=== PATIENT | male | born 1975 ===

== ENCOUNTER 2019-02-03 15:32 | Emergency (ER) | payer SELFPAY ==
[2019-02-03] MEDS ORDERED: Aspirin 81 MG Tab.Chew PO ONE (15:38)
[2019-02-03] MEDS ORDERED: Sodium Chloride 0.9% 1,000 ML IV ONE (15:38)
[2019-02-03] MEDS ORDERED: Aspirin 81 MG Tab.Chew ONE (15:46)
[2019-02-03] MEDS ORDERED: Nitroglycerin 0.4 MG Tab.SL SL ONE (15:47)
[2019-02-03] MEDS: Nitroglycerin 0.4 MG Tab.SL SL PRN ×3 (15:53→16:03)
--- NOTE | 2019-02-03 16:15 | CR ---
INDICATION: chest pain TECHNIQUE: Chest 1 view. COMPARISON: None. FINDINGS: Cardiovascular and mediastinum: Heart size and vasculature are normal in caliber and appearance. Mediastinum is within normal limits. Lungs and pleural space: Lungs are clear. No sign of infiltrate or mass. No sign of pleural effusion. No pneumothorax. Bones and soft tissues: No significant findings. IMPRESSION: Unremarkable chest. Dictated by: Abhishek Ovalles MD @ 02/03/2019 16:14:17 (Electronically Signed)
[2019-02-03 16:20] LABS: CHLORIDE,CL 103 mmol/L (98-107); SODIUM,NA 138 mmol/L (136-148)
--- NOTE | 2019-02-03 16:28 | EDM.PDOC ---
ED HPI GENERAL MEDICAL PROBLEM - General Chief Complaint: Chest Pain Stated Complaint: CHEST PAINS Time Seen by Provider: 02/03/19 15:40 Source of Information: Reports: Patient History Limitations: Reports: No Limitations - History of Present Illness INITIAL COMMENTS - FREE TEXT/NARRATIVE: HISTORY AND PHYSICAL: History of present illness: Patient is a 43-year-old male presents to the ED today with concern of chest pain since he woke up this morning about 9 AM. Patient states he's been having chest pain off and on over the past several weeks but today has been ongoing since 9 AM. Patient states he had a physical scheduled with the clinic this morning who sent him to the ER due to his chest pain and high blood pressure. Patient states he does not normally have high blood pressure and does not have any health history of anything. Patient rates his discomfort a 6 out of 10 and describes it in the mid to the right lower sternum. Patient states the pain is worse with activity and he become short of breath with activity and better with rest. Patient states he has not taken anything today for her symptoms. Patient states he also feels a little bit sweaty but denies any other symptoms at this time. Patient denies fever, chills, or cough. Denies headache, neck stiff ness, change in vision, syncope, or near syncope. Denies nausea, vomiting, abdominal pain, diarrhea, constipation, or dysuria. Has not noted any blood in urine or stool. Patient has been eating and drinking appropriately. Review of systems: As per history of present illness and below otherwise all systems reviewed and negative. Past medical history: As per history of present illness and as reviewed below otherwise noncontributory. Surgical history: As per history of present illness and as reviewed below otherwise noncontributory. Social history: See social history for further information Family history: As per history of present illness and as reviewed below otherwise noncontributory. Physical exam: General: Patient is alert, oriented, and in no acute distress. Patient laying comfortably on exam table. Patient does appear covered in sweat. HEENT: Atraumatic, normocephalic, pupils equal and reactive bilaterally, negative for conjunctival pallor or scleral icterus, mucous membranes moist, TMs normal bilaterally, throat clear, neck supple, nontender, trachea midline. No drooling or trismus noted. No meningeal signs. No hot potato voice noted. Lungs: Clear to auscultation, breath sounds equal bilaterally, chest nontender. Heart: S1S2, regular rate and rhythm without overt murmur Abdomen: Soft, nondistended, nontender. Negative for masses or hepatosplenomegaly. Negative for costovertebral tenderness. Pelvis: Stable nontender. Genitourinary: Deferred. Rectal: Deferred. Skin: Intact, warm, dry. No lesions or rashes noted. Extremities: Atraumatic, negative for cords or calf pain. Neurovascular unremarkable. Neuro: Awake, alert, oriented. Cranial nerves II through XII unremarkable. Cerebellum unremarkable. Motor and sensory unremarkable throughout. Exam nonfocal. Notes: Patient does express complete resolution of chest pain with nitroglycerin given. Offered admission for observation, discussed the risks of not admitting, but patient adamantly declines stating he "has to work" and accepting of risk of not being admitted. Denies any further questions or concerns at this time. Diagnostics: EKG, CBC, CMP, UA, troponin, lipase, chest x-ray Therapeutics: ASA, saline, nitro x3 Prescription: none Impression: Chest pain, unspecified Plan: 1. You can alternate ibuprofen and Tylenol as directed for pain and discomfort. Follow up with her primary care provider as discussed. 2. Return to the ED as needed and as discussed. Definitive disposition and diagnosis as appropriate pending reevaluation and review of above. Chest Pain Score (Numeric/FACES): 1 - Related Data Allergies Allergy/AdvReac Type Severity Reaction Status Date / Time metronidazole [From Flagyl] Allergy Hives Verified 02/03/19 15:55 Home Meds: Home Meds . [No Known Home Meds] 02/03/19 [History] Past Medical History - Past Health History Medical/Surgical History: Denies Medical/Surgical History Social & Family History - Family History Family Medical History: Noncontributory - Tobacco Use Smoking Status *Q: Current Every Day Smoker Years of Tobacco use: 25 Packs/Tins Daily: 0.5 - Caffeine Use Caffeine Use: Reports: Coffee - Recreational Drug Use Recreational Drug Use: No ED ROS GENERAL - Review of Systems Review Of Systems: ROS reveals no pertinent complaints other than HPI. ED EXAM, GENERAL - Physical Exam Exam: See Below (See dictation) Course - Vital Signs Last Recorded V/S: Last Vital Signs Temp 36.4 C 02/03/19 15:36 Pulse 108 H 02/03/19 16:08 Resp 18 02/03/19 16:08 BP 144/99 H 02/03/19 16:08 Pulse Ox 95 02/03/19 16:08 - Orders/Labs/Meds Orders: Active Orders 24 hr Category Date Time Status EKG Documentation Completion [RC] STAT Care 02/03/19 15:38 Active UA RFX FABIANO AND CULT IF INDIC [URIN] Stat Lab 02/03/19 15:38 Ordered Labs: Laboratory Tests 02/03/19 02/03/19 Range/Units 15:42 15:42 WBC 8.86 (4.0-11.0) K/uL RBC 5.57 (4.50-5.90) M/uL Hgb 16.3 (13.0-17.0) g/dL Hct 47.0 (38.0-50.0) % MCV 84.4 (80.0-98.0) fL MCH 29.3 (27.0-32.0) pg MCHC 34.7 (31.0-37.0) g/dL RDW Std Deviation 44.3 (28.0-62.0) fl RDW Coeff of Jose 15 (11.0-15.0) % Plt Count 223 (150-400) K/uL MPV 9.30 (7.40-12.00) fL Neut % (Auto) 55.1 (48.0-80.0) % Lymph % (Auto) 34.1 (16.0-40.0) % [place] % (Auto) 9.3 (0.0-15.0) % Eos % (Auto) 1.2 (0.0-7.0) % Baso % (Auto) 0.3 (0.0-1.5) % Neut # (Auto) 4.9 (1.4-5.7) K/uL Lymph # (Auto) 3.0 H (0.6-2.4) K/uL [place] # (Auto) 0.8 (0.0-0.8) K/uL Eos # (Auto) 0.1 (0.0-0.7) K/uL Baso # (Auto) 0.0 (0.0-0.1) K/uL Nucleated RBC % 0.0 /100WBC Nucleated RBCs # 0 K/uL Sodium 138 (136-148) mmol/L Potassium 3.8 (3.5-5.1) mmol/L Chloride 103 (98-107) mmol/L Carbon Dioxide 23.9 (21.0-32.0) mmol/L BUN 18 (7.0-18.0) mg/dL Creatinine 1.3 (0.8-1.3) mg/dL Est Cr Clr Drug Dosing 60.09 mL/min Estimated GFR (MDRD) 59.7 ml/min Glucose 106 (74-106) mg/dL Calcium 9.3 (8.5-10.1) mg/dL Total Bilirubin 0.3 (0.2-1.0) mg/dL AST 21 (15-37) IU/L ALT 59 (14-63) IU/L Alkaline Phosphatase 92 (46-116) U/L Troponin I < 0.050 (0.000-0.056) ng/mL Total Protein 7.8 (6.4-8.2) g/dL Albumin 3.7 (3.4-5.0) g/dL Globulin 4.1 H (2.6-4.0) g/dL Albumin/Globulin Ratio 0.9 (0.9-1.6) Lipase 308 (73-393) U/L Meds: Medications Discontinued Medications Generic Name Dose Route Start Last Admin Trade Name Freq PRN Reason Stop Dose Admin Aspirin 324 mg 02/03/19 15:38 02/03/19 15:44 Aspirin PO 02/03/19 15:39 324 mg ONETIME ONE Administration Aspirin Confirm 02/03/19 15:46 02/03/19 15:49 Aspirin Administered 02/03/19 15:47 Not Given Dose 81 mg .ROUTE .STK-MED ONE Sodium Chloride 1,000 mls @ 999 mls/hr 02/03/19 15:38 02/03/19 15:44 Normal Saline IV 02/03/19 16:38 999 mls/hr STAT ONE Administration Nitroglycerin 0.4 mg 02/03/19 15:48 02/03/19 16:03 Nitrostat SL 0.4 mg Q5M PRN Administration Chest Pain Departure - Departure Time of Disposition: 16:43 Disposition: Home, Self-Care 01 Clinical Impression: Chest pain Qualifiers: Chest pain type: unspecified Qualified Code(s): R07.9 - Chest pain, unspecified Hypertension Qualifiers: Hypertension type: unspecified Qualified Code(s): I10 - Essential (primary) hypertension Referrals: PCP,Unknown [Primary Care Provider] - Forms: ED Department Discharge Additional Instructions: The following information is given to patients seen in the emergency department who are being discharged to home. This information is to outline your options for follow-up care. We provide all patients seen in our emergency department with a follow-up referral. The need for follow-up, as well as the timing and circumstances, are variable depending upon the specifics of your emergency department visit. If you don't have a primary care physician on staff, we will provide you with a referral. We always advise you to contact your personal physician following an emergency department visit to inform them of the circumstance of the visit and for follow-up with them and/or the need for any referrals to a consulting specialist. The emergency department will also refer you to a specialist when appropriate. This referral assures that you have the opportunity for follow-up care with a specialist. All of these measure are taken in an effort to provide you with optimal care, which includes your follow-up. Under all circumstances we always encourage you to contact your private physician who remains a resource for coordinating your care. When calling for follow-up care, please make the office aware that this follow-up is from your recent emergency room visit. If for any reason you are refused follow-up, please contact the [facility] at and asked to speak to the emergency department charge nurse. [facility] [address] [place] [address] [id number] [address] [id number] 1. You can alternate ibuprofen and Tylenol as directed for pain and discomfort. Follow up with her primary care provider as discussed. 2. Return to the ED as needed and as discussed. - My Orders Last 24 Hours: My Active Orders 02/03/19 15:38 EKG Documentation Completion [RC] STAT UA RFX FABIANO AND CULT IF INDIC [URIN] Stat - Assessment/Plan Last 24 Hours: My Active Orders 02/03/19 15:38 EKG Documentation Completion [RC] STAT UA RFX FABIANO AND CULT IF INDIC [URIN] Stat
== END 2019-02-03 16:55 | disposition home or self-care (01) ==
LOC: MW.ED 15:32
DX: R07.9 Chest pain, unspecified (principal); I10 Essential (primary) hypertension; F17.210 Nicotine dependence, cigarettes, uncomplicated
CPT/HCPCS: 36415; 71045; 80053; 83690; 84484; 85025; 96360; 99285; A9270; J7040; 93005